=== PATIENT | male | born 1960 | race American Indian/Alaskan Native ===

== ENCOUNTER 2020-03-15 09:00 | Emergency (ER) | payer SELFPAY ==
[2020-03-15] MEDS ORDERED: SODIUM CHLORIDE 0.9% 500 ML 500 ML IV ONE (09:38)
[2020-03-15] MEDS ORDERED: ONDANSETRON 4 MG/2 ML INJ IV ONE (10:27)
[2020-03-15] MEDS ORDERED: KETOROLAC 30 MG/1 ML INJ IV ONE (10:27)
[2020-03-15] MEDS ORDERED: FAMOTIDINE 20 MG/2 ML INJ IV ONE (10:27)
[2020-03-15] MEDS ORDERED: SODIUM CHLORIDE 0.9% 1000 ML 1,000 ML IV ONE ×3 (10:27→13:33)
[2020-03-15 10:28] LABS: Basophils % (Auto) 0.7 % (0.0-1.8); Eosinophils % (Auto) 0.4 % (0.0-4.3); Hematocrit 37.3 % (35.5-45.6); Hemoglobin 12.8 gm/dl (11.8-15.2); Lymphocytes # (Auto) 0.6 K/mm3 (1.2-5.4); Lymphocytes % (Auto) 21.4 % (13.4-35.0); Mean Corpuscular HGB Conc 34 % (32-34); Mean Corpuscular Volume 89 fl (84-94); Monocytes # (Auto) 0.3 K/mm3 (0.0-0.8); Monocytes % (Auto) 10.9 % (0.0-7.3); Platelet Count 243 K/mm3 (140-440); Red Blood Count 4.19 M/mm3 (3.65-5.03); Red Cell Distribution Width 14.7 % (13.2-15.2)
[2020-03-15] MEDS ORDERED: DICYCLOMINE 20 MG/2 ML INJ IM ONE (10:32)
--- NOTE | 2020-03-15 10:41 | Emergency Department Report ---
ED General Adult HPI - General Chief complaint: Upper Respiratory Infection Stated complaint: CHILLS,DIARRHEA,V Time Seen by Provider: 03/15/20 10:16 Source: patient Mode of arrival: Ambulatory Limitations: No Limitations - History of Present Illness Initial comments: Patient is a 59-year-old F Malagasy male with no significant past medical history who is here for flu/COVID-19 type symptoms. Patient states he has had a cough which is productive of clear sputum associated with shortness of breath for the last 3 days. Patient has a loss of taste and smell as well. Complaints of shortness of breath chills fever also. Patient states he now has some epigastric cramping that is a 6 out of 10 in severity with nausea vomiting and diarrhea. He does not notice any episodes of hematemesis or hematochezia. Patient does not have any known exposures to COVID-19. Associated Symptoms: cough, diaphoresis, fever/chills, loss of appetite, malaise, nausea/vomiting, shortness of breath, weakness. denies: confusion, chest pain, rash, seizure, syncope - Related Data Previous Rx's Medication Instructions Recorded Last Taken Type Azithromycin [Zithromax Z-GELY] 250 mg PO DAILY #6 tablet 03/15/20 Unknown Rx Benzonatate [Tessalon Perles] 100 mg PO Q8HR #10 capsule 03/15/20 Unknown Rx Dicyclomine [Bentyl] 20 mg PO QID #10 tablet 03/15/20 Unknown Rx HYDROcodone/APAP 5-325 [[place] 1 each PO Q6HR PRN #14 tablet 03/15/20 Unknown Rx 5/325] Ondansetron [Zofran Odt] 4 mg PO Q8HR #10 tab.rapdis 03/15/20 Unknown Rx Allergies Allergy/AdvReac Type Severity Reaction Status Date / Time No Known Allergies Allergy Unverified 06/05/14 14:03 ED Review of Systems ROS: Stated complaint: CHILLS,DIARRHEA,V Other details as noted in HPI Comment: All other systems reviewed and negative ED Past Medical Hx - Past Medical History Previous Medical History?: No Hx Psychiatric Treatment: No - Surgical History Past Surgical History?: Yes Additional Surgical History: left hip replacement - Social History Smoking Status: Never Smoker Substance Use Type: None - Medications Home Medications: Home Medications Medication Instructions Recorded Confirmed Last Taken Type Azithromycin [Zithromax Z-GELY] 250 mg PO DAILY #6 tablet 03/15/20 Unknown Rx Benzonatate [Tessalon Perles] 100 mg PO Q8HR #10 capsule 03/15/20 Unknown Rx Dicyclomine [Bentyl] 20 mg PO QID #10 tablet 03/15/20 Unknown Rx HYDROcodone/APAP 5-325 [[place] 1 each PO Q6HR PRN #14 tablet 03/15/20 Unknown Rx 5/325] Ondansetron [Zofran Odt] 4 mg PO Q8HR #10 tab.rapdis 03/15/20 Unknown Rx ED Physical Exam - General Limitations: No Limitations General appearance: alert, in no apparent distress - Head Head exam: Present: atraumatic, normocephalic - Eye Eye exam: Present: normal appearance, PERRL, EOMI - ENT ENT exam: Present: mucous membranes dry - Neck Neck exam: Present: normal inspection - Respiratory Respiratory exam: Present: normal lung sounds bilaterally. Absent: respiratory distress, wheezes, rales - Cardiovascular Cardiovascular Exam: Present: regular rate, normal rhythm, normal heart sounds. Absent: systolic murmur, diastolic murmur, rubs, gallop - GI/Abdominal GI/Abdominal exam: Present: soft, tenderness (diffuse), normal bowel sounds. Absent: distended, guarding, rebound, rigid - Rectal Rectal exam: Present: deferred - Extremities Exam Extremities exam: Present: normal inspection - Back Exam Back exam: Present: normal inspection - Neurological Exam Neurological exam: Present: alert, oriented X3 - Psychiatric Psychiatric exam: Present: normal affect, normal mood - Skin Skin exam: Present: warm, dry, intact, normal color. Absent: rash ED Course Vital Signs 03/15/20 03/15/20 03/15/20 09:26 09:42 09:45 Temperature 99.0 F Pulse Rate 77 Respiratory 18 Rate Blood Pressure 94/66 104/71 107/73 O2 Sat by Pulse 100 Oximetry 03/15/20 03/15/20 03/15/20 10:00 10:15 10:30 Temperature Pulse Rate Respiratory Rate Blood Pressure 107/73 115/78 113/77 O2 Sat by Pulse 97 99 98 Oximetry 03/15/20 03/15/20 03/15/20 10:45 11:00 11:15 Temperature Pulse Rate 63 64 58 L Respiratory 15 15 12 Rate Blood Pressure 99/70 104/74 101/65 O2 Sat by Pulse 99 100 98 Oximetry 03/15/20 03/15/20 03/15/20 11:30 11:45 12:00 Temperature Pulse Rate 64 56 L 54 L Respiratory 17 19 11 L Rate Blood Pressure 95/66 92/61 99/60 O2 Sat by Pulse 100 100 99 Oximetry 03/15/20 03/15/20 03/15/20 12:15 12:30 12:45 Temperature Pulse Rate 56 L 60 54 L Respiratory 14 10 L 11 L Rate Blood Pressure 94/64 96/58 100/61 O2 Sat by Pulse 97 100 Oximetry 03/15/20 03/15/20 03/15/20 13:00 13:15 13:30 Temperature Pulse Rate 53 L 54 L 55 L Respiratory 13 13 12 Rate Blood Pressure 94/65 99/58 91/57 O2 Sat by Pulse 99 96 98 Oximetry 03/15/20 13:45 Temperature Pulse Rate 50 L Respiratory 15 Rate Blood Pressure 90/56 O2 Sat by Pulse 98 Oximetry ED Medical Decision Making - Lab Data Result diagrams: 03/15/20 10:04 03/15/20 10:04 Lab Results 03/15/20 03/15/20 03/15/20 Range/Units 10:04 10:04 10:04 WBC 2.8 L (4.5-11.0) K/mm3 RBC 4.19 (3.65-5.03) M/mm3 Hgb 12.8 (11.8-15.2) gm/dl Hct 37.3 (35.5-45.6) % MCV 89 (84-94) fl MCH 31 (28-32) pg MCHC 34 (32-34) % RDW 14.7 (13.2-15.2) % Plt Count 243 (140-440) K/mm3 Lymph % (Auto) 21.4 (13.4-35.0) % Toole % (Auto) 10.9 H (0.0-7.3) % Eos % (Auto) 0.4 (0.0-4.3) % Baso % (Auto) 0.7 (0.0-1.8) % Lymph # 0.6 L (1.2-5.4) K/mm3 Toole # 0.3 (0.0-0.8) K/mm3 Eos # 0.0 (0.0-0.4) K/mm3 Baso # 0.0 (0.0-0.1) K/mm3 Seg Neutrophils % 66.6 (40.0-70.0) % Seg Neutrophils # 1.8 (1.8-7.7) K/mm3 PT 12.3 (12.2-14.9) Sec. INR 0.93 (0.87-1.13) D-Dimer 219.52 (0-234) ng/mlDDU VBG pH (7.320-7.420) Sodium 137 (137-145) mmol/L Potassium 4.9 (3.6-5.0) mmol/L Chloride 97.4 L (98-107) mmol/L Carbon Dioxide 29 (22-30) mmol/L Anion Gap 16 mmol/L BUN 10 (9-20) mg/dL Creatinine 0.9 (0.8-1.5) mg/dL Estimated GFR > 60 ml/min BUN/Creatinine Ratio 11 % Glucose 96 (75-100) mg/dL Lactic Acid (0.7-2.0) mmol/L Calcium 9.0 (8.4-10.2) mg/dL Ferritin (13.0-400.0) ng/mL Total Bilirubin 0.40 (0.1-1.2) mg/dL Direct Bilirubin < 0.2 (0-0.2) mg/dL AST 18 (5-40) units/L ALT 13 (7-56) units/L Alkaline Phosphatase 82 (35-129) units/L Lactate Dehydrogenase 148 (91-180) units/L Total Creatine Kinase 62 (55-170) units/L CK-MB (CK-2) < 1.0 (0.0-4.0) ng/mL CK-MB (CK-2) Rel Index 1.6 (0-4) C-Reactive Protein 0.10 (0.00-1.30) mg/dL Total Protein 7.8 (6.3-8.2) g/dL Albumin 4.3 (3.9-5) g/dL Albumin/Globulin Ratio 1.2 % Lipase (13-60) units/L Procalcitonin (<0.15) ng/mL 03/15/20 03/15/20 03/15/20 Range/Units 10:04 10:04 10:04 WBC (4.5-11.0) K/mm3 RBC (3.65-5.03) M/mm3 Hgb (11.8-15.2) gm/dl Hct (35.5-45.6) % MCV (84-94) fl MCH (28-32) pg MCHC (32-34) % RDW (13.2-15.2) % Plt Count (140-440) K/mm3 Lymph % (Auto) (13.4-35.0) % [place] % (Auto) (0.0-7.3) % Eos % (Auto) (0.0-4.3) % Baso % (Auto) (0.0-1.8) % Lymph # (1.2-5.4) K/mm3 [place]ole # (0.0-0.8) K/mm3 Eos # (0.0-0.4) K/mm3 Baso # (0.0-0.1) K/mm3 Seg Neutrophils % (40.0-70.0) % Seg Neutrophils # (1.8-7.7) K/mm3 PT (12.2-14.9) Sec. INR (0.87-1.13) D-Dimer (0-234) ng/mlDDU VBG pH 7.312 L (7.320-7.420) Sodium (137-145) mmol/L Potassium (3.6-5.0) mmol/L Chloride (98-107) mmol/L Carbon Dioxide (22-30) mmol/L Anion Gap mmol/L BUN (9-20) mg/dL Creatinine (0.8-1.5) mg/dL Estimated GFR ml/min BUN/Creatinine Ratio % Glucose (75-100) mg/dL Lactic Acid 1.90 (0.7-2.0) mmol/L Calcium (8.4-10.2) mg/dL Ferritin 75.8 (13.0-400.0) ng/mL Total Bilirubin (0.1-1.2) mg/dL Direct Bilirubin (0-0.2) mg/dL AST (5-40) units/L ALT (7-56) units/L Alkaline Phosphatase (35-129) units/L Lactate Dehydrogenase (91-180) units/L Total Creatine Kinase (55-170) units/L CK-MB (CK-2) (0.0-4.0) ng/mL CK-MB (CK-2) Rel Index (0-4) C-Reactive Protein (0.00-1.30) mg/dL Total Protein (6.3-8.2) g/dL Albumin (3.9-5) g/dL Albumin/Globulin Ratio % Lipase (13-60) units/L Procalcitonin (<0.15) ng/mL 03/15/20 03/15/20 Range/Units 10:04 10:52 WBC (4.5-11.0) K/mm3 RBC (3.65-5.03) M/mm3 Hgb (11.8-15.2) gm/dl Hct (35.5-45.6) % MCV (84-94) fl MCH (28-32) pg MCHC (32-34) % RDW (13.2-15.2) % Plt Count (140-440) K/mm3 Lymph % (Auto) (13.4-35.0) % [place] % (Auto) (0.0-7.3) % Eos % (Auto) (0.0-4.3) % Baso % (Auto) (0.0-1.8) % Lymph # (1.2-5.4) K/mm3 [place] # (0.0-0.8) K/mm3 Eos # (0.0-0.4) K/mm3 Baso # (0.0-0.1) K/mm3 Seg Neutrophils % (40.0-70.0) % Seg Neutrophils # (1.8-7.7) K/mm3 PT (12.2-14.9) Sec. INR (0.87-1.13) D-Dimer (0-234) ng/mlDDU VBG pH (7.320-7.420) Sodium (137-145) mmol/L Potassium (3.6-5.0) mmol/L Chloride (98-107) mmol/L Carbon Dioxide (22-30) mmol/L Anion Gap mmol/L BUN (9-20) mg/dL Creatinine (0.8-1.5) mg/dL Estimated GFR ml/min BUN/Creatinine Ratio % Glucose (75-100) mg/dL Lactic Acid (0.7-2.0) mmol/L Calcium (8.4-10.2) mg/dL Ferritin (13.0-400.0) ng/mL Total Bilirubin (0.1-1.2) mg/dL Direct Bilirubin (0-0.2) mg/dL AST (5-40) units/L ALT (7-56) units/L Alkaline Phosphatase (35-129) units/L Lactate Dehydrogenase (91-180) units/L Total Creatine Kinase (55-170) units/L CK-MB (CK-2) (0.0-4.0) ng/mL CK-MB (CK-2) Rel Index (0-4) C-Reactive Protein (0.00-1.30) mg/dL Total Protein (6.3-8.2) g/dL Albumin (3.9-5) g/dL Albumin/Globulin Ratio % Lipase 76 H (13-60) units/L Procalcitonin < 0.05 (<0.15) ng/mL - EKG Data -: EKG Interpreted by Mn EKG shows normal: sinus rhythm, axis, intervals, QRS complexes, ST-T waves Rate: normal - EKG Data Interpretation: normal EKG 03/15/20 11:16 @1050 - Radiology Data [facility] [address] [place] [address] XRay Report Signed Patient: FELIX HURT MR#: [id number] : 1960 Acct:[id number] Age/Sex: 59 / M ADM Date: 03/15/20 Loc: ED Attending Dr: Ordering Physician: BASIA VASQUEZ MD Date of Service: 03/15/20 Procedure(s): XR chest 1V ap Accession Number(s): [id number] cc: BASIA VASQUEZ MD Fluoro Time In Minutes: Chest single view INDICATION: Cough IMPRESSION: Heart size is normal. There is faint ill-defined density near the right perihilar region. The lungs are otherwise clear. Signer Name: Adam Mckeon MD Signed: 03/15/2020 11:11 AM Workstation Name: [id number],2,3 Listo - Medical Decision Making Patient is a 59-year-old F Malagasy male who is presenting with cough congestion nausea vomiting and some diarrhea. Patient likely does have COVID-19 however his laboratory studies over unremarkable. Patient is ferritin level is within normal limits. His O2 saturation is within normal limits as well. Patient does appear to be a good candidate for outpatient therapy. Patient will be discharged home after hydration. Nausea and vomiting has subsided. Patient is discharged and he can get outpatient COVID-19 testing. Critical care attestation.: If time is entered above; I have spent that time in minutes in the direct care of this critically ill patient, excluding procedure time. ED Disposition Clinical Impression: Suspected COVID-19 virus infection, Viral gastroenteritis, Mild dehydration Disposition: DC- TO HOME OR SELFCARE Is pt being admited?: No Does the pt Need Aspirin: No Condition: Stable Instructions: COVID-19, Gastroenteritis (ED), Dehydration (ED) Additional Instructions: Please arrange outpatient COVID-19 testing. There are multiple testing sites which can in some cases tested for free. [facility] [address] [place] [id number] [facility] Immediate Care: [place] NO APPOINTMENT NEEDED [address], [address], [place] [id number], [facility] [phone] We are offering COVID-19 (coronavirus) drive-thru testing at our [facility] Referrals: WILBER DURAN MD [Primary Care Provider] - 3-5 Days Time of Disposition: 14:45
[2020-03-15 10:57] LABS: Creatine Kinase MB < 1.0 ng/mL (0.0-4.0)
[2020-03-15 10:59] LABS: Alanine Aminotransferase 13 units/L (7-56); Albumin 4.3 g/dL (3.9-5); BUN/Creatinine Ratio 11; Blood Urea Nitrogen 10 mg/dL (9-20); Hemolysis Index 3
[2020-03-15 11:04] LABS: Bilirubin,Direct < 0.2 mg/dL (0-0.2)
[2020-03-15 11:07] LABS: INR 0.93 (0.87-1.13)
--- NOTE | 2020-03-15 11:15 | XRay Report ---
Chest single view INDICATION: Cough IMPRESSION: Heart size is normal. There is faint ill-defined density near the right perihilar region. The lungs are otherwise clear. Signer Name: Adam Mckeon MD Signed: 03/15/2020 11:11 AM Workstation Name: [id number]
[2020-03-15 15:02] LABS: Bilirubin,Urine NEG (Negative); Blood,Urine NEG (Negative); Color,Urine Yellow (Yellow); Hyaline Casts,Urine 1 /LPF; Mucus,Urine 1+ /HPF; Protein,Urine <15 mg/dL mg/dL (Negative); Urobilinogen,Urine < 2.0 mg/dL (<2.0)
[2020-03-15 15:06] VITALS: BP 96/66
== END 2020-03-15 15:19 | disposition home or self-care (01) ==
LOC: ED 09:00
DX: K21.9 Gastro-esophageal reflux disease without esophagitis (principal); E86.0 Dehydration; Z20.828 Contact with and (suspected) exposure to other viral communicable diseases; Z79.899 Other long term (current) drug therapy
CPT/HCPCS: 36415; 71045; 80048; 80076; 81001; 82140; 82550; 82553; 82728; 82805; 83615; 83690; 84145; 85025; 85379; 85610; 86140; 87040; 87086; 93005; 96361; 96372; 96374; 96375; 99284; J0500; J1885; J2405; J7030